=== PATIENT | male | born 1970 | race Native Hawaiian/Other Pacific Islander ===

== ENCOUNTER 2018-08-03 12:02 | Emergency (ER) | payer OTHER ==
[2018-08-03 12:11] VITALS: BP 141/72
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
== END 2018-08-03 12:24 | disposition home or self-care (01) ==
LOC: ED 12:02
DX: S39.012A Strain of muscle, fascia and tendon of lower back, initial encounter (principal); F17.200 Nicotine dependence, unspecified, uncomplicated; R03.0 Elevated blood-pressure reading, without diagnosis of hypertension
CPT/HCPCS: 99283